=== PATIENT | male | born 1960 | race Caucasian/White ===

== ENCOUNTER 2017-08-02 04:37 | Emergency (ER) | payer MEDICARE, MEDICAID ==
[~2017-08-02] VITALS: Ht 177.8 cm; Wt 93.0 kg
[~2017-08-02 04:37] MED LIST: ACE500 PO; ACE650S; AMI25 PO; ASA PO; ASCO-191 PO; ASPI-715 PO; ATOR20TA65 PO; CEPH250C37 PO; CIPR-344 PO; CODE118S5 PO; CYC10 PO; CYCL-332 PO; CYCL-343 PO; DUL30 PO; DULO60CA56 PO; ENA10 PO; ENAL20TA99 PO; GAB300 PO; GABA-1 PO; GLIM2TAB43 PO; HUM7030I SC; IBU800 PO; INSU100I35 SQ; INSU100I5 SC; INSULIN; LEVI SUBQ; LISI-362 PO; LISI5TAB25 PO; LOR5 PO; LOR5/325 PO; METF-1 PO; OXYC-865 PO; OXYC10TA67 PO; OXYC5CAP21 PO; PEN1DIS.48; SITA25TA PO; SITA50TA7 PO; TRIA15OI20 TP; [UNRECOGNIZED DRUG - CODE] SQ
--- NOTE | 2017-08-02 04:40 | ER Report ---
History and Physical Time Seen By : 04:40 HPI/ROS CHIEF COMPLAINT: Runny nose, cough, sorethroat HISTORY OF PRESENT ILLNESS: Pt started 8 days ago with nasal congestion and facial pressure. Pt then began with sorethroat. Pt now has a cough as well. Pt unable to sleep. no documented fevers but has been having hot and cold sensations. Pt unable to sleep or get comfortable. Tonight coughed up mucus that had blood streaking. pt had his flu shot. + sick contacts. REVIEW OF SYSTEMS: General: + chills HEENT: + sorethroat, + nasal congestion Respiratory: +cough, no dyspnea. Cardiovascular: No chest pain, no palpitations. Gastrointestinal: No vomiting, no abdominal pain. Musculoskeletal: No back pain. Allergies: Coded Allergies: tramadol (Verified Adverse Reaction, Mild, NAUSEA, 02/26/17) Home Meds Active Scripts Pen Needle, Diabetic (Insulin Pen Needle) 31 Gauge X 1/6" Dis.needle, BOX BID, # 1 5 Refills Prov:TERRY HARDING MD 06/28/17 Lisinopril (LISINOPRIL) 10 Mg Tablet, 10 MG PO QDAY, #30 TAB 5 Refills Prov:TERRY HARDING MD 06/28/17 Atorvastatin Calcium (ATORVASTATIN CALCIUM) 20 Mg Tablet, 1 TAB PO QDAY, #30 TAB 3 Refills Prov:TERRY HARDING MD 05/28/17 Insulin Detemir (Levemir Flextouch) 100 Unit/1 Ml Insuln.pen, 30 UNITS SC QDAY, #5 SYR 1 Refill add 2 units every 3 days until fasting blood glucose 120 or less max 50 units /24 hours Prov:TERRY HARDING MD 05/28/17 Reported Medications Insulin Aspart (NOVOLOG FLEXPEN) 100 Unit/1 Ml Insuln.pen, 30 UNIT SQ BID 05/21/17 Duloxetine Hcl (CYMBALTA) 60 Mg Capsule.dr, 60 MG PO QDAY, CAP TAKE 1 CAPSULE BY MOUTH EVERY DAY 07/28/14 Oxycodone Hcl 10 Mg Tab (OXYCODONE HCL 10 MG TAB) 10 Mg Tablet, 10 MG PO Q4H 07/28/14 Past Medical/Surgical History Pmhx: htn, hyperlipid, dm Pshx: noncontribuitory Reviewed Nurses Notes: Yes Old Medical Records Reviewed: Yes Hx Smoking: No Smoking Status: Former Smoker Hx Substance Use Disorder: Yes (HAS USED COCAINE AND MARIJUANA. LAST TIME WAS ONE MONTH AGO) Hx Alcohol Use: Yes (DRINKS A FEW BEERS PER WEEK.) Constitutional Vital Sign - Last 24 Hours 08/02/17 08/02/17 08/02/17 08/02/17 04:43 04:45 05:13 05:15 Temp 98.0 Pulse 90 88 82 Resp 14 B/P (MAP) 143/84 Pulse Ox 92 91 O2 Delivery Room Air O2 Flow Rate 2.0 Physical Exam General Appearance: The patient is alert, has no immediate need for airway protection and no signs of toxicity. Eyes: Pupils equal and round no pallor or injection, EOMI ENT: no pharyngeal erythema or exudates, Mucous membranes are moist, TM are nl b/l, + tendernes maxillary sinuses Respiratory: There are no retractions, lungs are clear to auscultation. Cardiovascular: Regular rate and rhythm. pulses are equal and symmetrical Gastrointestinal: Abdomen is soft and non tender, no masses, bowel sounds normal, no guarding, no rigidity or rebound Neurological: Cranial nerves II-XII grossly intact, no sensory or motor loss Skin: Warm and dry, no rashes. Musculoskeletal: Neck is supple non tender, no vertebral tenderness Extremities are nontender, non swollen and have full range of motion. DIFFERENTIAL DIAGNOSIS: After history and physical exam differential diagnosis was considered for influenza, sinusitis, strep, bronchitis, pneumoina Medical Decision Making Data Points Laboratory Hematology Test 08/02/17 04:48 Influenza Type A Antigen Negative (NEGATIVE) Influenza Type B Antigen Negative (NEGATIVE) Group A Streptococcus Screen Negative (NEGATIVE) Chemistry Test 08/02/17 04:48 Influenza Type A Antigen Negative (NEGATIVE) Influenza Type B Antigen Negative (NEGATIVE) Group A Streptococcus Screen Negative (NEGATIVE) EKG/Imaging Imaging napd, no cardiomegaly ED Course/Re-evaluation ED Course PT checked for strep and influenza which were neg. Pts xray does not show pneumonia. Pt has had symptoms for over a week. Suspect started as viral but will treat with abx in case of secondary bacterial infection. suspect pt sinuses drip is causing cough and sorethraot. Decision to Disposition Date: Aug 02, 2017 Decision to Disposition Time: 05:38 Depart Departure Latest Vital Signs Vital Signs Date Time Temp Pulse Resp B/P (MAP) Pulse Ox O2 Delivery O2 Flow Rate FiO2 08/02/17 05:15 82 08/02/17 05:13 2.0 08/02/17 04:45 91 08/02/17 04:43 98.0 14 143/84 Room Air Impression: Primary Impression: URI (upper respiratory infection) Additional Impression: Cough Condition: Improved Disposition: HOME OR SELF-CARE New Scripts Promethazine/Phenyleph/Codeine (Promethazine Vc-Codeine Syrup) 6.25 Mg-5 Mg-10 Mg/5 Ml Syrup 5 ML PO Q6H Y for COUGH, #90 ML Prov: RUDDY OCONNELL DO 08/02/17 Azithromycin (Z-PACK) 250 Mg Tablet 6 TAB PO QDAY, #6 DOSE-PACK Prov: RUDDY OCONNELL DO 08/02/17 Departure Forms: ER Transition Record, Medications Reconciliation, Patient Portal Information Patient Instructions: Upper Respiratory Infection (GEN) Additional Instructions: Your tests today were negative for strep throat and influenza. Your chest xray did not show pneumonia. Zithromax 500mg today then 250mg once a day for 4 more days. Cough syrup one teaspoon every 6 hours as needed for cough and congestion. Problem Qualifiers Primary Impression: URI (upper respiratory infection) URI type: unspecified URI Qualified Codes: J06.9 - Acute upper respiratory infection, unspecified RUDDY OCONNELL DO Aug 02, 2017 04:40
[2017-08-02] MEDS ORDERED: PROMETH/COD SYRP 6.25-10MG/5ML PO ONE (04:50)
--- NOTE | 2017-08-02 05:22 | RADIOLOGY IMAGING REPORT ---
FACILITY: [facility] - [place] PATIENT NAME: Cam Mondragon : 1960 MR: [id number] V: [id number] EXAM DATE: ORDERING PHYSICIAN: RUDDY OCONNELL TECHNOLOGIST: Location: [facility] [place] Patient: Cam Mondragon : 1960 Visit/Account:[id number] Date of Sevice: 08/02/2017 CHEST: Indication: Persistent cough. Technique: Frontal and lateral views were obtained. Comparison: 12/01/2014 Skeletal and soft tissue structures: There are stable postoperative changes in the cervical spine. Th e skeletal structures are otherwise intact and unremarkable. Heart and mediastinum: Within normal limits. Lung palencia: Well-expanded and clear. Pleural spaces: Unremarkable. Impression: No acute process or significant change. Report Dictated By: Tello Bishop MD at 08/02/2017 5:15 AM Report E-Signed By: Tello Bishop MD at 08/02/2017 5:17 AM WSN:[id number]
[2017-08-02] MEDS ORDERED: AZIT-17 PO (05:41)
[2017-08-02] MEDS ORDERED: PHEN118S56 PO (05:41)
[2017-08-02 06:00] VITALS: BP 128/80
== END 2017-08-02 05:57 | disposition home or self-care (01) ==
LOC: ER 04:40
DX: J06.9 Acute upper respiratory infection, unspecified (principal)
CPT/HCPCS: 71046; 87081; 87502; 87880; 99283; A9270

== ENCOUNTER 2017-12-25 07:08 | Emergency (ER) | payer MEDICARE, MEDICAID ==
[~2017-12-25 07:08] MED LIST changes: +AZIT-17 PO; +PHEN118S56 PO
--- NOTE | 2017-12-25 07:24 | ER Report ---
History and Physical Time Seen By MD: 07:23 Hx. of Stated Complaint: pt presents with hx of awakening with chest pain at 0200 today, slight sob and pain in l arm /hand HPI/ROS CHIEF COMPLAINT: Chest Pain HISTORY OF PRESENT ILLNESS: Patient is a 57-year-old male with past medical history significant for hypercholesterolemia, hypertension and type II diabetes. Patient states he has been taking his insulin as directed however he has not been taking his lisinopril or his atorvastatin. Patient states that he woke up around 2 AM and was asymptomatic. He got up out of bed and when he moved he felt pain in his shoulder, left anterior chest and down his left arm. Pain seemed to be worse with range of motion of the left shoulder but did not seem to be worse with walking or exertion. No associated shortness of breath or diaphoresis. No nausea or vomiting. The patient has no prior history of [place]. He states the pain is been constant since 2 AM. Because he was concerned he presents to emergency department for further evaluation. REVIEW OF SYSTEMS: Constitutional: No fever, no chills. Eyes: No discharge. ENT: No sore throat. Cardiovascular: Anterior chest wall and left shoulder and arm pain., No palpitations Respiratory: No cough, no shortness of breath. Gastrointestinal: No abdominal pain, no vomiting. Genitourinary: No hematuria. Musculoskeletal: No back pain. Skin: No rashes. Neurological: No headache. Allergies: Coded Allergies: tramadol (Verified Adverse Reaction, Mild, NAUSEA, 12/25/17) Home Meds Active Scripts Naproxen (NAPROXEN) 375 Mg Tablet., 375 MG PO TID for PAIN, #21 TAB 0 Refills Prov:OTTONIEL MAGDALENO MD 12/25/17 Duloxetine Hcl (CYMBALTA) 60 Mg Capsule.dr, 60 MG PO QDAY, #30 CAP 0 Refills Prov:OTTONIEL MAGDALENO MD 12/25/17 Lisinopril (LISINOPRIL) 10 Mg Tablet, 10 MG PO QDAY for 30 Days, #30 TAB 0 Refills Prov:OTTONIEL MAGDALENO MD 12/25/17 Atorvastatin Calcium (ATORVASTATIN CALCIUM) 20 Mg Tablet, 1 TAB PO QDAY for 30 Days, #30 TAB 0 Refills Prov:OTTONIEL MAGDALENO MD 12/25/17 Insulin Detemir 100 UN/ML PEN (Levemir Flextouch) 100 Unit/1 Ml Insuln.pen, 30 UNITS SC QDAY, #5 SYR add 2 units every 3 days until fasting blood glucose 120 or less max 50 units /24 hours Prov:TERRY HARDING MD 12/21/17 Pen Needle, Diabetic (Insulin Pen Needle) 31 Gauge X 1/6" Dis.needle, BOX BID, # 1 5 Refills Prov:TERRY HARDING MD 06/28/17 Reported Medications Insulin Aspart 100 Un/Ml Pen (NOVOLOG FLEXPEN) 100 Unit/1 Ml Insuln.pen, 30 UNIT SQ BID 05/21/17 Oxycodone Hcl 10 Mg Tab (OXYCODONE HCL 10 MG TAB) 10 Mg Tablet, 10 MG PO Q4H 07/28/14 Discontinued Reported Medications Duloxetine Hcl (CYMBALTA) 60 Mg Capsule.dr, 60 MG PO QDAY, CAP TAKE 1 CAPSULE BY MOUTH EVERY DAY 07/28/14 Discontinued Scripts Promethazine/Phenyleph/Codeine (Promethazine Vc-Codeine Syrup) 6.25 Mg-5 Mg-10 Mg/5 Ml Syrup, 5 ML PO Q6H Y for COUGH, #90 ML Prov:RUDDY OCONNELL V DO 08/02/17 Azithromycin (Z-PACK) 250 Mg Tablet, 6 TAB PO QDAY, #6 DOSE-PACK Prov:RUDDY OCONNELL DO 08/02/17 Lisinopril (LISINOPRIL) 10 Mg Tablet, 10 MG PO QDAY, #30 TAB 5 Refills Prov:TERRY HARDING MD 06/28/17 Atorvastatin Calcium (ATORVASTATIN CALCIUM) 20 Mg Tablet, 1 TAB PO QDAY, #30 TAB 3 Refills Prov:TERRY HARDING MD 05/28/17 Past Medical/Surgical History Pmhx: htn, hyperlipid, dm; hx of marajuana and cocaine abuse; hx of hep c; treated with harvoni and is now hep c neg Pshx: noncontribuitory Hx Smoking: No Smoking Status: Former Smoker Hx Substance Use Disorder: Yes (HAS USED COCAINE AND MARIJUANA. none for 5 years) Hx Alcohol Use: Yes (DRINKS A FEW BEERS PER WEEK. not for awhile) Constitutional Vital Sign - Last 24 Hours 12/25/17 12/25/17 12/25/17/5/18 07:11 07:12 07:23 07:23 Temp 97.4 Pulse 79 Resp 22 B/P (MAP) 147/97 147/97 (114) 140/92 (108) Pulse Ox 87 O2 Delivery Room Air O2 Flow Rate 2.0 12/25/17 12/25/17 12/25/17 12/25/17 07:30 08:00 08:05 08:30 Pulse 75 Resp 16 B/P (MAP) 135/89 (104) 139/90 (106) 141/89 (106) Pulse Ox 96 12/25/17 12/25/17 12/25/17 12/25/17 08:54 09:00 09:05 09:22 Pulse 76 Resp 14 B/P (MAP) 129/91 (104) 134/87 (103) 137/85 (102) Pulse Ox 89 Physical Exam General/Constitutional: Patient is awake, alert, nontoxic and in no acute respiratory distress. Head: Normocephalic and atraumatic. Eyes: Conjunctival clear, Pupils are equal and reactive to light. Extraocular muscles are intact and symmetrical. Sclera are clear and anicteric. Ears:External canals are clear. Tympanic membranes are clear with normal landmarks and light reflex. Nares: No rhinorrhea or bleeding. Turbinates are pink and moist. Oropharyngeal: Mucous membranes are moist. There is no pharyngeal erythema or exudate. There are no palatal petechiae. Uvula is midline and symmetrical. Neck: Supple, no adenopathy. Cardiovascular: Heart is regular rate and rhythm without audible murmurs, rubs or gallops. Pulmonary: Lungs are clear to auscultation bilaterally. There are no wheezes, rales, or rhonchi. Chest rise is symmetrical Abdomen: Soft, nontender, no guarding or peritoneal signs. Extremities: No gross deformities, No peripheral cyanosis. Able to move all 4 extremities. Patient does have some reproducible left anterior and shoulder pain with range of motion of the left shoulder. This seems to reproduce the pain that he is experiencing that brought him to the emergency department. Neuro: Alert and oriented X3, Cranial nerves 2 thru 12 are intact and symmetrical. Patient has normal gait. Skin: No rashes, skin is warm dry and well perfused. Medical Decision Making Data Points Result Diagram: 12/25/17 0730 12/25/17 0730 Laboratory Hematology Test 12/25/17 07:30 12/25/17 08:08 Red Blood Count 5.30 M/uL (4.00-5.60) Mean Corpuscular Volume 92.5 fL (80.0-96.0) Mean Corpuscular Hemoglobin 32.3 pg (26.0-33.0) Mean Corpuscular Hemoglobin Concent 35.0 g/dL (32.0-36.0) Red Cell Distribution Width 13.7 % (11.5-14.5) Mean Platelet Volume 9.3 fL (7.2-11.1) Neutrophils (%) (Auto) 58.6 % (39.4-72.5) Lymphocytes (%) (Auto) 30.2 % (17.6-49.6) Monocytes (%) (Auto) 8.9 % (4.1-12.4) Eosinophils (%) (Auto) 1.5 % (0.4-6.7) Basophils (%) (Auto) 0.8 % (0.3-1.4) Nucleated RBC Relative Count (auto) 0.1 /100WBC Neutrophils # (Auto) 3.9 K/uL (2.0-7.4) Lymphocytes # (Auto) 2.0 K/uL (1.3-3.6) Monocytes # (Auto) 0.6 K/uL (0.3-1.0) Eosinophils # (Auto) 0.1 K/uL (0.0-0.5) Basophils # (Auto) 0.1 K/uL (0.0-0.1) Nucleated RBC Absolute Count (auto) 0.00 K/uL Peripheral Blood Smear No Y/N Sodium Level 136 mmol/L (137-145) Potassium Level 4.3 mmol/L (3.5-5.0) Chloride Level 98 mmol/L (98-107) Carbon Dioxide Level 27 mmol/L (22-30) Blood Urea Nitrogen 14 mg/dl (9-21) Creatinine 0.70 mg/dl (0.66-1.25) Glomerular Filtration Rate Calc > 60.0 Random Glucose 229 mg/dl (75-110) Hemoglobin A1c 10.7 % (4.6-6.0) Calcium Level 9.1 mg/dl (8.4-10.2) Total Bilirubin 0.6 mg/dl (0.2-1.3) Aspartate Amino Transf (AST/SGOT) 23 U/L (0-35) Alanine Aminotransferase (ALT/SGPT) 31 U/L (0-56) Alkaline Phosphatase 76 U/L (0-126) Troponin I < 0.012 ng/ml Total Protein 6.8 gm/dl (6.3-8.2) Albumin 3.7 g/dl (3.5-5.0) Urine Color Yellow Urine Clarity Clear Urine pH 6.0 pH (4.8-9.5) Urine Specific [place] 1.012 Urine Protein 30 mg/dL (NEGATIVE) Urine Glucose (UA) 500 mg/dL (NEGATIVE) Urine Ketones Negative mg/dL (NEGATIVE) Urine Blood Negative (NEGATIVE) Urine Nitrite Negative (NEGATIVE) Urine Bilirubin Negative (NEGATIVE) Urine Urobilinogen Negative mg/dL (0.2-1.9) Urine Leukocyte Esterase Negative (NEGATIVE) Urine RBC None /HPF (0-2/HPF) Urine WBC 1 /HPF (0-5/HPF) Urine Squamous Epithelial Cells None /LPF (</=FEW) Urine Bacteria Negative /HPF (NONE-FEW) Urine Mucus None /HPF (NONE-FEW) Urine Opiates Screen Negative Urine Barbiturates Screen Negative Ur Tricyclic Antidepressants Screen Negative Urine Phencyclidine Screen Negative Urine Amphetamines Screen Negative Urine Benzodiazepines Screen Negative Urine Cocaine Screen Negative Urine Cannabinoids Screen Negative Chemistry Test 12/25/17 07:30 12/25/17 08:08 White Blood Count 6.6 k/uL (4.5-11.0) Red Blood Count 5.30 M/uL (4.00-5.60) Hemoglobin 17.1 g/dL (14.0-18.0) Hematocrit 49.0 % (42.0-52.0) Mean Corpuscular Volume 92.5 fL (80.0-96.0) Mean Corpuscular Hemoglobin 32.3 pg (26.0-33.0) Mean Corpuscular Hemoglobin Concent 35.0 g/dL (32.0-36.0) Red Cell Distribution Width 13.7 % (11.5-14.5) Platelet Count 146 K/uL (150-450) Mean Platelet Volume 9.3 fL (7.2-11.1) Neutrophils (%) (Auto) 58.6 % (39.4-72.5) Lymphocytes (%) (Auto) 30.2 % (17.6-49.6) Monocytes (%) (Auto) 8.9 % (4.1-12.4) Eosinophils (%) (Auto) 1.5 % (0.4-6.7) Basophils (%) (Auto) 0.8 % (0.3-1.4) Nucleated RBC Relative Count (auto) 0.1 /100WBC Neutrophils # (Auto) 3.9 K/uL (2.0-7.4) Lymphocytes # (Auto) 2.0 K/uL (1.3-3.6) Monocytes # (Auto) 0.6 K/uL (0.3-1.0) Eosinophils # (Auto) 0.1 K/uL (0.0-0.5) Basophils # (Auto) 0.1 K/uL (0.0-0.1) Nucleated RBC Absolute Count (auto) 0.00 K/uL Peripheral Blood Smear No Y/N Glomerular Filtration Rate Calc > 60.0 Hemoglobin A1c 10.7 % (4.6-6.0) Calcium Level 9.1 mg/dl (8.4-10.2) Total Bilirubin 0.6 mg/dl (0.2-1.3) Aspartate Amino Transf (AST/SGOT) 23 U/L (0-35) Alanine Aminotransferase (ALT/SGPT) 31 U/L (0-56) Alkaline Phosphatase 76 U/L (0-126) Troponin I < 0.012 ng/ml Total Protein 6.8 gm/dl (6.3-8.2) Albumin 3.7 g/dl (3.5-5.0) Urine Color Yellow Urine Clarity Clear Urine pH 6.0 pH (4.8-9.5) Urine Specific [place] 1.012 Urine Protein 30 mg/dL (NEGATIVE) Urine Glucose (UA) 500 mg/dL (NEGATIVE) Urine Ketones Negative mg/dL (NEGATIVE) Urine Blood Negative (NEGATIVE) Urine Nitrite Negative (NEGATIVE) Urine Bilirubin Negative (NEGATIVE) Urine Urobilinogen Negative mg/dL (0.2-1.9) Urine Leukocyte Esterase Negative (NEGATIVE) Urine RBC None /HPF (0-2/HPF) Urine WBC 1 /HPF (0-5/HPF) Urine Squamous Epithelial Cells None /LPF (</=FEW) Urine Bacteria Negative /HPF (NONE-FEW) Urine Mucus None /HPF (NONE-FEW) Urine Opiates Screen Negative Urine Barbiturates Screen Negative Ur Tricyclic Antidepressants Screen Negative Urine Phencyclidine Screen Negative Urine Amphetamines Screen Negative Urine Benzodiazepines Screen Negative Urine Cocaine Screen Negative Urine Cannabinoids Screen Negative Toxicology Test 12/25/17 08:08 Urine Opiates Screen Negative Urine Barbiturates Screen Negative Ur Tricyclic Antidepressants Screen Negative Urine Phencyclidine Screen Negative Urine Amphetamines Screen Negative Urine Benzodiazepines Screen Negative Urine Cocaine Screen Negative Urine Cannabinoids Screen Negative Urinalysis Test 12/25/17 08:08 Urine Color Yellow Urine Clarity Clear Urine pH 6.0 pH (4.8-9.5) Urine Specific [place] 1.012 Urine Protein 30 mg/dL (NEGATIVE) Urine Glucose (UA) 500 mg/dL (NEGATIVE) Urine Ketones Negative mg/dL (NEGATIVE) Urine Blood Negative (NEGATIVE) Urine Nitrite Negative (NEGATIVE) Urine Bilirubin Negative (NEGATIVE) Urine Urobilinogen Negative mg/dL (0.2-1.9) Urine Leukocyte Esterase Negative (NEGATIVE) Urine RBC None /HPF (0-2/HPF) Urine WBC 1 /HPF (0-5/HPF) Urine Squamous Epithelial Cells None /LPF (</=FEW) Urine Bacteria Negative /HPF (NONE-FEW) Urine Mucus None /HPF (NONE-FEW) EKG/Imaging EKG Interpretation 12/25/2017 7:26:11 am EKG from today shows sinus rhythm with ventricular rate of 75 bpm. There is no significant ST segment or T-wave abnormalities. There is a poor baseline in the precordial leads. This was compared to an EKG from July 2014 no significant changes were noted Monitor Interpretation: Normal Sinus Rhythm Imaging FACILITY: [facility] - [place] PATIENT NAME: Cam Mondragon : 1960 MR: [id number] V: [id number] EXAM DATE: ORDERING PHYSICIAN: OTTONIEL MAGDALENO TECHNOLOGIST: Location: [facility] Patient: Cam Mondragon : 1960 Visit/Account:[id number] Date of Sevice: 12/25/2017 CHEST: Indication: Chest pain. Technique: Frontal and lateral views were obtained. Comparison: 08/02/2017 Skeletal and soft tissue structures: Intact and unchanged. Heart and mediastinum: Within normal limits. Lung palencia: Well-expanded and clear. No focal opacities. No vascular congestion. Pleural spaces: Unremarkable. Impression: No acute process or significant change. Report Dictated By: Tello Bishop MD at 12/25/2017 7:49 AM Report E-Signed By: Tello Bishop MD at 12/25/2017 7:50 AM WSN:[id number] ED Course/Re-evaluation Clinical Indication for ER IV: IV Access ED Course 12/25/2017 7:57:55 am patient with left shoulder or left anterior chest pain and left arm pain that began around 2 AM and has been constant since onset. No associated shortness of breath it does not seem to be related to exertion. No nausea or diaphoresis is noted. Patient does have a prior history of cocaine use although he denies any recent use the last few months. He states he is off his antihypertensive and anticholesterol medications. Plan at this time will be cardiac workup including troponin, EKG and other blood work. It is unlikely that this represents acute coronary syndrome is more likely musculoskeletal based on history and physical exam. I believe a single troponin is all that is needed at this time. EKG appears completely normal and is unchanged from prior. Blood work unremarkable troponin is negative. Plan at this time will be discharge home. We will refill the patient's atrophic statin, lisinopril and Cymbalta. Encouraged follow-up with his primary care provider. Decision to Disposition Date: Dec 25, 2017 Decision to Disposition Time: 09:15 Depart Departure Latest Vital Signs Vital Signs Date Time Temp Pulse Resp B/P (MAP) Pulse Ox O2 Delivery O2 Flow Rate FiO2 12/25/17 09:22 137/85 (102) 12/25/17 09:05 76 14 89 12/25/17 07:23 2.0 12/25/17 07:11 97.4 Room Air Impression: Primary Impression: Acute chest wall pain Condition: Improved Disposition: HOME OR SELF-CARE Referrals: TERRY HARDING MD 2 Weeks Called to reestablish primary care New Scripts Naproxen (NAPROXEN) 375 Mg Tablet. 375 MG PO TID for PAIN, #21 TAB 0 Refills Prov: OTTONIEL MAGDALENO MD 12/25/17 Duloxetine Hcl (CYMBALTA) 60 Mg Capsule.dr 60 MG PO QDAY, #30 CAP 0 Refills Prov: OTTONIEL MAGDALENO MD 12/25/17 Lisinopril (LISINOPRIL) 10 Mg Tablet 10 MG PO QDAY for 30 Days, #30 TAB 0 Refills Prov: OTTONIEL MAGDALENO MD 12/25/17 Atorvastatin Calcium (ATORVASTATIN CALCIUM) 20 Mg Tablet 1 TAB PO QDAY for 30 Days, #30 TAB 0 Refills Prov: OTTONIEL MAGDALENO MD 12/25/17 Departure Forms: ER Transition Record, Medications Reconciliation, Off Work/ School Form, School or Work Release?: Work Number of days to be released: 1 Patient Portal Information Patient Instructions: Chest Wall Pain (ED) Additional Instructions: Be sure to call and schedule a primary care appointment so you can reestablish routine medical care and get all of your prescriptions filled. OTTONIEL MAGDALENO MD Dec 25, 2017 07:24
[2017-12-25] MEDS ORDERED: ASPIRIN 81 MG CHEW PO ONE (07:30)
--- NOTE | 2017-12-25 07:32 | EKG ---
FACILITY: [facility] - [place] PATIENT NAME: CATARINO SÁNCHEZ : [id number] MR: [id number] V: [id number] EXAM DATE: ORDERING PHYSICIAN: OTTONIEL MAGDALENO TECHNOLOGIST: Test Reason : Blood Pressure : / mmHG Vent. Rate : 075 BPM Atrial Rate : 075 BPM P-R Int : 148 ms QRS Dur : 092 ms QT Int : 394 ms P-R-T Axes : 038 -04 038 degrees QTc Int : 439 ms Normal sinus rhythm Normal ECG When compared with ECG of 24-JUL-2014 08:33, Incomplete right bundle branch block is no longer present Confirmed by MOHAN LOPEZ ([id number]) on 12/25/2017 12:07:55 PM Referred By: Confirmed By:MOHAN LOPEZ
[2017-12-25 07:41] LABS: PLATELET COUNT, AUTOMATED 146 K/uL (150-450)
--- NOTE | 2017-12-25 07:55 | RADIOLOGY IMAGING REPORT ---
[place] [facility] [place]: Cam Mondragon : 1960 MR: [id number] V: [id number] EXAM DATE: ORDERING PHYSICIAN: OTTONIEL MAGDALENO TECHNOLOGIST: Location: [facility] Patient: Cam Mondragon : 1960 Visit/Account:[id number] Date of Sevice: 12/25/2017 CHEST: Indication: Chest pain. Technique: Frontal and lateral views were obtained. Comparison: 08/02/2017 Skeletal and soft tissue structures: Intact and unchanged. Heart and mediastinum: Within normal limits. Lung palencia: Well-expanded and clear. No focal opacities. No vascular congestion. Pleural spaces: Unremarkable. Impression: No acute process or significant change. Report Dictated By: Tello Bishop MD at 12/25/2017 7:49 AM Report E-Signed By: Tello Bishop MD at 12/25/2017 7:50 AM WSN:[id number]
[2017-12-25] MEDS ORDERED: ATOR20TA65 PO (09:12)
[2017-12-25] MEDS ORDERED: DULO60CA56 PO (09:12)
[2017-12-25] MEDS ORDERED: LISI-362 PO (09:12)
[2017-12-25] MEDS ORDERED: NAPR-731 PO (09:12)
[2017-12-25 09:22] VITALS: BP 137/85
== END 2017-12-25 09:28 | disposition home or self-care (01) ==
LOC: ER 07:29
DX: R07.89 Other chest pain (principal); F14.21 Cocaine dependence, in remission; F12.11 Cannabis abuse, in remission; E11.9 Type 2 diabetes mellitus without complications
CPT/HCPCS: 71046; 80305; 81001; 83036; 84484; 85025; 93005; 99283; A9270; 82040; 82247; 82310; 82374; 82435; 82565; 82947; 84075; 84132; 84155; 84295; 84450; 84460; 84520

== ENCOUNTER → 2018-07-01 | Outpatient (CLI) | payer MEDICARE, MEDICAID ==
[~2018-07-01] MED LIST changes: +NAPR-731 PO
--- NOTE | 2018-07-01 15:09 | RADIOLOGY IMAGING REPORT ---
FACILITY: [facility] PATIENT NAME: Cam Mondragon : 1960 MR: [id number] V: [id number] EXAM DATE: ORDERING PHYSICIAN: SANTA ZELAYA TECHNOLOGIST: Location: [facility] Patient: Cam Mondragon : 1960 Visit/Account:[id number] Date of Sevice: 07/01/2018 SHOULDER LEFT W/O CONTRAST COMPARISON: None. HISTORY: Left shoulder pain TECHNIQUE: Noncontrast multiplanar MRI of the left shoulder utilizing T1 weighted and fluid sensitiv e sequences. CONTRAST: None. FINDINGS: ROTATOR CUFF: Mild tendinosis of the subscapularis and infraspinatus tendon insertions. No discrete rotator cuff tear. No muscle atrophy or edema. BICEPS: The long head of biceps tendon is normal in caliber and signal. The extra-articular segment is normally positioned within the intertubercular sulcus. FLUID/BURSA: There is no glenohumeral effusion or subacromial/subdeltoid bursitis. GLENOHUMERAL JOINT: Exuberant glenohumeral spurring consistent with advanced osteoarthritis with ful l-thickness cartilage loss on both sides of the joint and prominent degenerative cyst formation in th e glenoid. Lack of fluid in the joint and arthrogram technique limits assessment for subtle labral pathology. With this noted there appears to be circumferential degenerative tearing of the labrum. Th e glenohumeral ligaments are intact. AC JOINT: There is no acromioclavicular significant osteoarthritis, subacromial spur or os acromiale . A type II acromion is noted. BONES: Subchondral edema and cyst formation due to glenohumeral articular cartilage loss. Otherwise normal marrow signal and alignment. There is no Hill-Sachs deformity or osseous Bankart lesion. OTHER: Negative. IMPRESSION: 1. Mild left subscapularis and infraspinatus tendinosis. No discrete rotator cuff tear. 2. Advanced glenohumeral joint osteoarthritis and chondral loss, with apparent circumferential degen erative tearing of the labrum. Report Dictated By: Samuel Stearns at 07/01/2018 2:58 PM Report E-Signed By: Samuel Stearns at 07/01/2018 3:05 PM WSN:[email or web address]
== END ==
LOC: MRI 04:53
PROVIDERS: ATTEND Clinical Nurse Specialist Family Health
DX: M19.012 Primary osteoarthritis, left shoulder (principal); M75.82 Other shoulder lesions, left shoulder

== ENCOUNTER → 2018-07-04 | Outpatient (CLI) | payer MEDICARE, MEDICAID ==
[~2018-07-04] MED LIST changes: +FLAS1EAC2 TD; +FLAS1KIT2
[2018-07-04 09:08] LABS: PLATELET COUNT, AUTOMATED 177 K/uL (150-450)
[2018-07-04 09:28] LABS: LDL CHOLESTEROL 123 mg/dl
== END ==
LOC: LAB 08:53
PROVIDERS: ATTEND Internal Medicine
DX: Z12.5 Encounter for screening for malignant neoplasm of prostate (principal); E78.5 Hyperlipidemia, unspecified; I10 Essential (primary) hypertension; E11.9 Type 2 diabetes mellitus without complications
CPT/HCPCS: 36415; 81001; 82043; 83036; 84443; 85025; G0103; 82040; 82247; 82310; 82374; 82435; 82465; 82565; 82947; 83718; 84075; 84132; 84153; 84155; 84295; 84450; 84460; 84478; 84520

== ENCOUNTER → 2018-09-17 | Outpatient (CLI) | payer MEDICARE, MEDICAID ==
[~2018-09-17] MED LIST changes: +ATOR40TA69 PO; +HYDR-389 PO; +METXR500 PO; +PEN-61 SQ
[2018-09-17 10:17] LABS: LDL CHOLESTEROL 98 mg/dl
== END ==
LOC: LAB 09:39
PROVIDERS: ATTEND Internal Medicine
DX: I10 Essential (primary) hypertension (principal); E11.9 Type 2 diabetes mellitus without complications; E78.5 Hyperlipidemia, unspecified; G89.29 Other chronic pain
CPT/HCPCS: 36415; 82040; 82247; 82310; 82374; 82435; 82465; 82565; 82947; 83036; 83718; 84075; 84132; 84155; 84295; 84450; 84460; 84478; 84520

== ENCOUNTER 2018-11-25 21:02 | Emergency (ER) | payer OTHER, MEDICARE, MEDICAID ==
[~2018-11-25 21:02] MED LIST changes: -ACETAMINOPHEN 500 MG TAB PO ONE; -CYCL10TA29 PO; -KET10 PO; -KETOROLAC 60 MG/2 ML VIAL IM ONE
[2018-11-25 21:10] VITALS: BP 143/91
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
[2018-11-25] MEDS ORDERED: CYCLOBENZAPRINE HCL 10 MG TH PO ONE (21:20)
[2018-11-25] MEDS ORDERED: KETOROLAC TROM 10 MG TAB TH PO ONE (21:20)
[2018-11-25] MEDS ORDERED: KET10 PO (21:25)
[2018-11-25] MEDS ORDERED: CYCL10TA29 PO (21:25)
[2018-12-02] MEDS ORDERED: PIR10 PO (14:25)
[2018-12-02] MEDS ORDERED: HYDR-389 PO (14:29)
== END 2018-11-25 21:35 | disposition home or self-care (01) ==
LOC: ER 21:27
DX: S16.1XXA Strain of muscle, fascia and tendon at neck level, initial encounter (principal); S46.911A Strain of unspecified muscle, fascia and tendon at shoulder and upper arm level, right arm, initial encounter; M25.561 Pain in right knee
CPT/HCPCS: 70450; 72125; 99283

== ENCOUNTER → 2018-11-25 | Outpatient (CLI) | payer OTHER, MEDICARE, MEDICAID ==
[~2018-11-25] MED LIST changes: +CYCL10TA29 PO; +KET10 PO
== END ==
LOC: AMB 13:21
PROVIDERS: ATTEND Nurse Practitioner
DX: M54.2 Cervicalgia (principal); R07.0 Pain in throat; M25.561 Pain in right knee; R51 Headache; M79.642 Pain in left hand; M79.641 Pain in right hand; V43.52XA Car driver injured in collision with other type car in traffic accident, initial encounter; Y92.414 Local residential or business street as the place of occurrence of the external cause
CPT/HCPCS: A0425; A0429

== ENCOUNTER → 2018-11-25 | Emergency (ER) | payer OTHER, MEDICARE, MEDICAID ==
[~2018-11-25] MED LIST changes: +ACETAMINOPHEN 500 MG TAB PO ONE; +KETOROLAC 60 MG/2 ML VIAL IM ONE
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
--- NOTE | 2018-11-26 08:02 | RADIOLOGY IMAGING REPORT ---
FACILITY: [facility] PATIENT NAME: Cam Mondragon : 1960 MR: [id number] V: [id number] EXAM DATE: ORDERING PHYSICIAN: DARÍO SWENSON TECHNOLOGIST: [place] [facility] [place] Mondragon : 1960 Visit/Account:[id number] Date of Sevice: 11/25/2018 SHOULDER MIN 2 VIEWS RIGHT INDICATION: Right shoulder pain. Trauma. COMPARISON: None available. FINDINGS: 4 views of the right shoulder. No evidence of acute fracture, dislocation, or radiopaque foreign body. Osteoarthritis of the glenohumeral joint. IMPRESSION: 1. No acute osseous abnormality of the right shoulder. 2. Osteoarthritis of the glenohumeral joint. Report Dictated By: Biuj Morales MD at 11/25/2018 3:21 PM Report E-Signed By: Biju Morales MD at 11/25/2018 3:23 PM WSN:[email or web address]
--- NOTE | 2018-11-26 08:05 | RADIOLOGY IMAGING REPORT ---
FACILITY: [facility] PATIENT NAME: Cam Mondragon : 1960 MR: [id number] V: [id number] EXAM DATE: ORDERING PHYSICIAN: DARÍO SWENSON TECHNOLOGIST: Location: [facility] [place] Patient: Cam Mondragon : 1960 Visit/Account:[id number] Date of Sevice: 11/25/2018 KNEE LIMITED RIGHT INDICATION: Trauma. Right knee pain. COMPARISON: None available. FINDINGS: 2 views of the right knee. No evidence of acute fracture, dislocation, or radiopaque foreign body. Minimal osteoarthritis with questionable small joint effusion. IMPRESSION: 1. No evidence of acute fracture or dislocation. 2. Minimal osteoarthritis with questionable small joint effusion. Report Dictated By: Biju Morales MD at 11/25/2018 3:20 PM Report E-Signed By: Biju Morales MD at 11/25/2018 3:21 PM WSN:[email or web address]
--- NOTE | 2018-11-26 08:08 | RADIOLOGY IMAGING REPORT ---
FACILITY: [facility] PATIENT NAME: Cam Mondragon : 1960 MR: [id number] V: [id number] EXAM DATE: ORDERING PHYSICIAN: DARÍO SWENSON TECHNOLOGIST: Location: [facility] [place] Patient: Cam Mondragon : 1960 Visit/Account:[id number] Date of Sevice: 11/25/2018 EXAMINATION: CT Head without intravenous contrast HISTORY: Trauma. TECHNIQUE: Axial images were obtained from the skull base to the vertex without intravenous contrast . Sagittal and coronal reformatted images are also submitted. One of the following dose optimization techniques was utilized in the performance of this exam: Autom ated exposure control; adjustment of the mA and/or kV according to the patient's size; or use of an i terative reconstruction technique. Specific details can be referenced in the facility's radiology C T exam operational policy. COMPARISON: None available. FINDINGS: Brain volume: Normal. Ventricles: Negative. Acute ischemic changes: None. Hemorrhage: None. Masses / edema: None. 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 White matter: Negative. Vessels: Negative. Extra-axial: Negative. Calvarium / skull base: Negative. Visualized sinuses / orbits: Mild mucosal thickening in the maxillary sinuses. IMPRESSION: No acute intracranial abnormality. Report Dictated By: Biju Morales MD at 11/25/2018 3:16 PM Report E-Signed By: Biju Morales MD at 11/25/2018 3:20 PM WSN:[email or web address]
== END ==
LOC: ER 13:40
DX: S16.1XXA Strain of muscle, fascia and tendon at neck level, initial encounter (principal); S40.011A Contusion of right shoulder, initial encounter; S80.01XA Contusion of right knee, initial encounter; V49.40XA Driver injured in collision with unspecified motor vehicles in traffic accident, initial encounter
CPT/HCPCS: 70450; 72125; 96372; 99284; J1885

== ENCOUNTER 2018-12-04 08:15 | Outpatient (RCR) | payer MEDICARE, MEDICAID ==
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
--- NOTE | 2018-11-19 10:51 | PT PLAN OF CARE ---
Physician: Dr. Dane Linares Patient is being seen: 2x/week Therapist: Cathleen Pinto, PT Medical Diagnosis: M25.512 Shoulder pain, Left Treatment Diagnosis: Same Date of Onset: 05/23/19 Date of Initial Evaluation: 10/01/18 Date patient was last seen: 11/19/18 Number of treatments: 10 Number of cancellations/No shows: 2 INTERVENTIONS: Manual Therapy, Strengthening, Ice/Heat, Range of Motion/Stretching, Electrical Stim GOALS/PATIENT'S GOAL: 1 month: Cam lifts heavy grocery bags with L shoulder pain 4-5/10. progressing 2 months: Cam scrubs his back with L shoulder pain 5/10. not met Patient Compliance: Excellent Prognosis: Excellent Reasons for continuing therapy: S: Cam rates L shoulder pain 3-6/10. Quick DASH 41%, was 39% at evaluation. He finds carrying groceries is mildly difficult now. O: ROM: AROM L shoulder 145 deg. flexion, 145 deg. scaption (reverse S-H rhythm), 70 deg. ER (=R). Mobility: Still hypomobile shoulder joints. Strength: Cam is advancing with gym exercise for rotator cuff and scapular strengthening. A/P: Cam Mondragon still has hypomobile L shoulder joints but is doing well with strengthening and stretching. If you agree, we'll continue 3-4 more weeks to goals set. Thank you. EDWIN
[~2018-12-04 08:15] MED LIST changes: +CYCL10TA29 PO; +KET10 PO; +PIR10 PO
--- NOTE | 2018-12-04 12:59 | PT PLAN OF CARE ---
Physician: Dr. Dane Linares Patient is being seen: 2x/week Therapist: Cathleen Pinto, PT Treatment Diagnosis: Same Date of Onset: 05/23/19 Date of Initial Evaluation: 10/01/18 Date patient was last seen: 12/04/18 Number of treatments: 12 Number of cancellations/No shows: 2 INTERVENTIONS: Manual Therapy, Strengthening, Heat,, Range of Motion/Stretching, Electrical Stim, Home Exercise Program GOALS/PATIENT'S GOAL: 1 month: Cam lifts heavy grocery bags with L shoulder pain 4-5/10. (Partially met, 5-6/10) 2 months: Cam scrubs his back with L shoulder pain 5/10. (not met, 7/10 pain scale) Patient Compliance: Excellent Prognosis: Excellent Reasons for discontinuing therapy: S: Cam relates his L shoulder is 5/10 a lot of the time, more painful washing his back, and carrying groceries is 5-6/10. Quick DASH has worsened to 57%. O: Posture: Even shoulders. ROM: A/PROM L shoulder 125/145 deg. flexion, 100/130 deg. scaption, ER worsened at 40/40 degrees. Strength: L supraspinatus improved to 5-+/5, biceps remains 5-/5, IR, triceps 5/5. Palpation: conveyor tender about the L shoulder. Mobility: Still hypomobile shoulder joints. A/P: Cam Mondragon has improved his L shoulder strength, less pain with the same function, but his shoulder continues to tighten up between sessions consistent with his glenohumeral OA. I feel he's maximized his PT gains with his L shoulder. Cam is independent with his HEP. I'll DC PT to HEP. Thank you. [facility]OSPITAL[facility]rianna
== END 2018-12-04 18:00 | disposition home or self-care (01) ==
LOC: PT 08:15
PROVIDERS: ATTEND Internal Medicine
DX: M25.512 Pain in left shoulder (principal)
CPT/HCPCS: 97010; 97110; 97140; 97162; G0283; 70450; 72125

== ENCOUNTER 2018-12-24 00:49 | Emergency (ER) | payer MEDICAID, MEDICARE, OTHER ==
--- NOTE | 2018-12-24 00:51 | ER Report ---
History and Physical Time Seen By : 00:51 HPI/ROS CHIEF COMPLAINT: Penile pain HISTORY OF PRESENT ILLNESS: 58-year-old male presents with penile pain. He notes on retraction of his foreskin. There is pain at the base of the penis just below the glans. Patient states last intercourse was one week ago. Patient notes no urinary burning. He notes no hematuria. REVIEW OF SYSTEMS: Respiratory: No cough, no dyspnea. Cardiovascular: No chest pain, no palpitations. Gastrointestinal: No vomiting, no abdominal pain. Musculoskeletal: No back pain. Allergies: Coded Allergies: tramadol (Verified Adverse Reaction, Mild, NAUSEA, 12/24/18) Home Meds Active Scripts Acyclovir (ACYCLOVIR) 800 Mg Tablet, 800 MG PO TID for gential herpes, #21 TAB Prov:JAMES LY DO 12/24/18 Piroxicam (PIROXICAM) 10 Mg Cap, 10 MG PO BID PRN for pain, #30 CAP 2 Refills Prov:TERRY HARDING MD 12/02/18 Pen Needle, Diabetic (Caretouch Pen Needle) 32 Gauge X 3/16" Dis.needle, BOX SQ TID for diabetes, #1 6 Refills Prov:TERRY HARDING MD 11/25/18 Insulin Detemir 100 UN/ML PEN (Levemir Flextouch) 100 Unit/1 Ml Insuln.pen, 30 UNITS SC QDAY, #5 SYR 3 Refills add 2 units every 3 days until fasting blood glucose 120 or less max 50 units /24 hours Prov:TERRY HARDING MD 10/22/18 Atorvastatin Calcium (ATORVASTATIN CALCIUM) 40 Mg Tablet, 1 TAB PO QDAY, #30 TAB 6 Refills Prov:TERRY HARDING MD 09/17/18 Metformin Hcl (METFORMIN HCL ER) 500 Mg Tabcr, 2 TAB PO BID, #120 TAB 6 Refills Prov:TERRY HADRING MD 08/12/18 Lisinopril (LISINOPRIL) 10 Mg Tablet, 10 MG PO BID for 30 Days, #60 TAB 6 Refills Prov:TERRY HARDING MD 08/12/18 Insulin Aspart 100 Un/Ml Pen (NOVOLOG FLEXPEN) 100 Unit/1 Ml Insuln.pen, 4-14 UNIT SQ TIDCF for 14 Days, #10 ML 6 Refills 100-150 4 units 151-200 6 u 201-250 8 u 251-300 10 U 300-350 12 u 351-400 14 units above 401 to call M.D. Prov:TERRY HARDING MD 08/12/18 Reported Medications Acetaminophen/Hydrocodone (HYDROCODON-ACETAMINOPH 7.5-325) 1 Each Ea, 1 EACH PO Q4-6H PRN for pain, EA 12/02/18 Reviewed Nurses Notes: Yes Old Medical Records Reviewed: Yes Hx Smoking: No Smoking Status: Former Smoker Hx Substance Use Disorder: Yes (HAS USED COCAINE AND MARIJUANA. none for 5 years) Hx Alcohol Use: Yes (DRINKS A FEW BEERS PER WEEK. not for awhile) Constitutional Vital Sign - Last 24 Hours 12/24/18 12/24/18 12/24/18 12/24/18 00:56 00:57 01:00 01:04 Temp 97.8 Pulse 87 85 Resp 14 B/P (MAP) 168/93 168/93 (118) 147/87 (107) Pulse Ox 91 89 O2 Delivery Room Air 12/24/18 12/24/18 12/24/18 01:19 01:30 01:34 Pulse 87 84 B/P (MAP) 133/90 (104) Pulse Ox 89 Physical Exam General Appearance: The patient is alert, has no immediate need for airway protection and no current signs of toxicity. Vital signs stable, afebrile, pulse ox normal Eyes: Pupils equal and round no injection. Respiratory: Chest is non tender, lungs are clear to auscultation. Cardiac: regular rate and rhythm Gastrointestinal: Abdomen is soft and non tender, no masses, bowel sounds normal. Genital: Normal uncircumcised male genitalia, retraction the foreskin reveals 3 small shallow-based ulcers at the base of the glans on the inferior aspect. Viral cultures were performed. Musculoskeletal: Neck: Neck is supple and non tender. No lymphadenopathy Extremities have full range of motion and are non tender. Skin: No rashes or lesions. DIFFERENTIAL DIAGNOSIS: After history and physical exam differential diagnosis was considered for genital herpes, excoriation, urinary tract infection, STI Medical Decision Making Data Points Laboratory Hematology Test 12/24/18 00:55 Urine Color Yellow Urine Clarity Clear Urine pH 5.0 pH (4.8-9.5) Urine Specific [place] 1.017 Urine Protein 100 mg/dL (NEGATIVE) Urine Glucose (UA) Negative mg/dL (NEGATIVE) Urine Ketones Negative mg/dL (NEGATIVE) Urine Blood Negative (NEGATIVE) Urine Nitrite Negative (NEGATIVE) Urine Bilirubin Negative (NEGATIVE) Urine Urobilinogen Negative mg/dL (0.2-1.9) Urine Leukocyte Esterase Negative (NEGATIVE) Urine RBC 1 /HPF (0-2/HPF) Urine WBC 1 /HPF (0-5/HPF) Urine Squamous Epithelial Cells Few /LPF (</=FEW) Urine Bacteria Negative /HPF (NONE-FEW) Urine Mucus None /HPF (NONE-FEW) Chemistry Test 12/24/18 00:55 Urine Color Yellow Urine Clarity Clear Urine pH 5.0 pH (4.8-9.5) Urine Specific [place] 1.017 Urine Protein 100 mg/dL (NEGATIVE) Urine Glucose (UA) Negative mg/dL (NEGATIVE) Urine Ketones Negative mg/dL (NEGATIVE) Urine Blood Negative (NEGATIVE) Urine Nitrite Negative (NEGATIVE) Urine Bilirubin Negative (NEGATIVE) Urine Urobilinogen Negative mg/dL (0.2-1.9) Urine Leukocyte Esterase Negative (NEGATIVE) Urine RBC 1 /HPF (0-2/HPF) Urine WBC 1 /HPF (0-5/HPF) Urine Squamous Epithelial Cells Few /LPF (</=FEW) Urine Bacteria Negative /HPF (NONE-FEW) Urine Mucus None /HPF (NONE-FEW) Urinalysis Test 12/24/18 00:55 Urine Color Yellow Urine Clarity Clear Urine pH 5.0 pH (4.8-9.5) Urine Specific [place] 1.017 Urine Protein 100 mg/dL (NEGATIVE) Urine Glucose (UA) Negative mg/dL (NEGATIVE) Urine Ketones Negative mg/dL (NEGATIVE) Urine Blood Negative (NEGATIVE) Urine Nitrite Negative (NEGATIVE) Urine Bilirubin Negative (NEGATIVE) Urine Urobilinogen Negative mg/dL (0.2-1.9) Urine Leukocyte Esterase Negative (NEGATIVE) Urine RBC 1 /HPF (0-2/HPF) Urine WBC 1 /HPF (0-5/HPF) Urine Squamous Epithelial Cells Few /LPF (</=FEW) Urine Bacteria Negative /HPF (NONE-FEW) Urine Mucus None /HPF (NONE-FEW) ED Course/Re-evaluation ED Course Patient admitted to an examination room. H&P was done. The differential diagnoses was considered. On clinical examination. He has 3 small shallow- based white ulcers on the base of his penis consistent with genital herpes. A viral culture was performed. Her urinalysis was unremarkable. Urinalysis was sent for GC and Chlamydia. Patient be treated with acyclovir 800 mg 3 times a day. Patient advised ibuprofen for pain relief. Follow-up with your primary care if unimproved in 3-5 days. Decision to Disposition Date: Dec 24, 2018 Decision to Disposition Time: 01:26 Depart Departure Latest Vital Signs Vital Signs Date Time Temp Pulse Resp B/P (MAP) Pulse Ox O2 Delivery O2 Flow Rate FiO2 12/24/18 01:34 84 89 12/24/18 01:30 133/90 (104) 12/24/18 00:56 97.8 14 Room Air Impression: Primary Impression: Penile ulcer Condition: Improved Disposition: HOME OR SELF-CARE Referrals: TERRY HARDING MD (PCP) New Scripts Acyclovir (ACYCLOVIR) 800 Mg Tablet 800 MG PO TID for gential herpes, #21 TAB Prov: JAMES LY DO 12/24/18 Patient Instructions: Genital Herpes Simplex (ED) Additional Instructions: Follow-up with your primary care if unimproved in 3-5 days JAMES LY DO Dec 24, 2018 00:51
[2018-12-24] MEDS ORDERED: ACYC800T99 PO (01:27)
[2018-12-24 01:30] VITALS: BP 133/90
[2018-12-24] MEDS ORDERED: ACYCLOVIR 200 MG CAP PO ONE (01:30)
== END 2018-12-24 01:44 | disposition home or self-care (01) ==
LOC: ER 01:06
DX: N48.5 Ulcer of penis (principal)
CPT/HCPCS: 81001; 87491; 87591; 99283; A9270

== ENCOUNTER → 2018-12-31 | Outpatient (CLI) | payer OTHER, MEDICARE, MEDICAID ==
[~2018-12-31] MED LIST changes: +ACYC800T99 PO
[2018-12-31 09:47] LABS: PLATELET COUNT, AUTOMATED 179 K/uL (150-450)
[2018-12-31 10:02] LABS: LDL CHOLESTEROL 105 mg/dl
== END ==
LOC: LAB 09:27
PROVIDERS: ATTEND Internal Medicine
DX: E78.5 Hyperlipidemia, unspecified (principal); E11.9 Type 2 diabetes mellitus without complications; I10 Essential (primary) hypertension
CPT/HCPCS: 36415; 82040; 82043; 82247; 82310; 82374; 82435; 82465; 82565; 82947; 83036; 83718; 84075; 84132; 84155; 84295; 84443; 84450; 84460; 84478; 84520; 85025

== ENCOUNTER → 2019-03-10 | Outpatient (RCR) | payer OTHER, MEDICARE, MEDICAID ==
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
[~2019-03-10] MED LIST changes: +ATOR-1 PO; +BLOO1STR16 MC; +LANC-1295 MC
== END ==
LOC: PT 12-10 08:16
PROVIDERS: ATTEND Internal Medicine
DX: S16.1XXA Strain of muscle, fascia and tendon at neck level, initial encounter (principal); M25.561 Pain in right knee; S46.911A Strain of unspecified muscle, fascia and tendon at shoulder and upper arm level, right arm, initial encounter; V89.2XXA Person injured in unspecified motor-vehicle accident, traffic, initial encounter
CPT/HCPCS: 97162

== ENCOUNTER 2019-03-12 08:15 | Outpatient (RCR) | payer OTHER, MEDICARE, MEDICAID ==
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
== END 2019-03-12 14:14 | disposition home or self-care (01) ==
LOC: PT 08:15
PROVIDERS: ATTEND Internal Medicine
DX: S16.1XXA Strain of muscle, fascia and tendon at neck level, initial encounter (principal); M25.561 Pain in right knee; S46.911A Strain of unspecified muscle, fascia and tendon at shoulder and upper arm level, right arm, initial encounter; V89.2XXA Person injured in unspecified motor-vehicle accident, traffic, initial encounter